=== PATIENT | male | born 1950 | race Caucasian/White ===

== ENCOUNTER 2016-11-27 11:47 | Day surgery (SDC) | payer MEDICARE ==
[~2016-11-27] VITALS: Ht 177.8 cm; Wt 104.3 kg
[~2016-11-27 11:47] MED LIST: FENO160T14 PO; FUR20 PO; LISI-571 PO; METF500T4 PO; METO25TA6 PO; NAPR550T44 PO; POTA10CA42 PO; SIMV20TA4 PO; Sodium Chloride LOK Flush 10 mL Syringe IV PRN; TRAZ-118 PO; fentaNYL-PF 50 mCg/mL 2 mL Inj IVPUSH PRN
[2016-11-27 12:32] VITALS: BP 136/78; PULSE 84; RESP 16; O2SAT 96
[2016-11-27] MEDS ORDERED: INSLIS SUBQ (12:35)
[2016-11-27] MEDS ORDERED: INSU100V7 SUBQ (12:35)
[2016-11-27] MEDS: 0.9% Sodium Chloride 1,000 ML IV PRN ×2 (12:41→14:38)
--- NOTE | 2016-11-27 14:58 | PCM.ENDCOL ---
Colonoscopy Date of Service: Nov 27, 2016 Physician Jarad Marquez MD Pre Procedure Diagnosis: Screening Post Procedure Dx & Findings: Polyp sigmoid diverticuli Procedure Colonoscopy Prep adequate Withdrawal time 17 minutes After unremarkable rectal examination the Olympus video colonoscope was inserted patient's anal canal and was advanced to cecum. Landmarks were identified including the ileocecal valve and appendiceal orifice. Scope was withdrawn systematically. Visualized colonic mucosa showed healthy shiny mucosa with normal healthy-appearing vasculature. In the cecum, there were total of 3 polyps. Sizes varied from 3 mm to 5 mm. These were removed completely using cold snare. In the transverse colon, there was a 1 mm polyp which was removed completely using cold snare. In the descending colon there was another 1 mm polyp which was removed completely using cold snare. In the sigmoid colon there are several small diverticuli. In the rectum retroflexion was done which showed hemorrhoids. Anal canal was inspected carefully on the way out and hemorrhoids noted. Impression Polyp 5 status post complete removal Diverticuli Hemorrhoids Recommendation Repeat colonoscopy 3 years Diverticular diet Presedation Assessment Risks and Benefits Informed consent was obtained from the patient after all risks and benefits including but not limited to drug reaction, infection, pain, bleeding, perforation, as well as alternatives were discussed. Patient monitoring Continuous pulse oximetry, cardiac monitoring, blood pressure monitoring, IV access, and oxygen at 2L per nasal cannula. Periprocedural Fentanyl: Fentanyl 75mcg Incrementally Midazolam: Midazolam 4mg Incrementally Complications There were no periprocedural complications identified. Post Procedure Plan Post Procedure Recommendations 1. Restrict activities today. 2. Resume normal activities in the morning. 3. Resume medications. 4. Patient informed of normal post procedure side effects as bloating, drowsiness, blood streaking in the stool. 5. average risk CRCS. If colon polyps come back as: -Hyperplastic- can repeat colonoscopy in 10 years -Tubular adenoma- repeat colonoscopy in 5 years -Tubulovillous/villous adenoma- repeat colonoscopy in 3 years -If any dysplasia- return to clinic as soon as possible 6. Please don't hesitate to call me with any questions. Jarad Marquez MD Nov 27, 2016 14:58
[2016-11-27 15:02] VITALS: BP 127/73; PULSE 69; RESP 14; O2SAT 96
[2016-11-27 15:14] VITALS: BP 128/79; PULSE 74; RESP 14; O2SAT 97
--- NOTE | 2016-11-30 15:01 | PATH ---
SURGICAL PATHOLOGY Attending Physician:Jarad Marquez M.D. CASE STATUS: Signed Out PATIENT NAME: JAMES BERTRAND PID: [id number] : 1950 DATE COLLECTED:11/27/2016 00:00 SPECIMEN: 1: Colon, Biopsy 2: Colon, Biopsy 3: Colon, Biopsy CLINICAL HISTORY: SCREENING,COLON POLYPS 1). CECAL POLYPS X3 2). TRANSVERSE COLON POLYP 3). DESCENDING COLON POLYP FINAL DIAGNOSIS: 1.CECAL POLYPS: TUBULAR ADENOMA INVOLVING MULTIPLE BIOPSY FRAGMENTS. SESSILE SERRATED ADENOMA INVOLVING SINGLE BIOPSY FRAGMENT. 2.TRANSVERSE COLON POLYP: FRAGMENT OF NORMAL-APPEARING COLON MUCOSA CONSISTENT WITH MUCOSAL POLYPOID REDUNDANCY. Negative for dysplasia and malignancy. 3.DESCENDING COLON POLYP: TUBULAR ADENOMA. ICD10 CODE D12.0 GROSS DESCRIPTION: The specimen is received in three formalin filled containers labeled with the patient's name. 1). The specimen is sublabeled "cecal polyps" and consists of multiple portions of tissue which aggregate to 0.7 x 0.7 x 0.4 CM. The specimen is entirely submitted in cassette 1A. 2). The specimen is sublabeled "transverse colon polyp" and consists of a 0.2 x 0.1 x 0.1 CM portion of tissue which is entirely submitted in cassette 2A. 3). The specimen is sublabeled "descending colon polyp" and consists of a 0.62 x 0.2 x 0.2 CM portion of tissue which is entirely submitted in cassette 3A. 11/28/2016 DAC MICRO DESCRIPTION: See diagnosis. ICD-9 CODES: CPT CODES: 1: 67934 2: 06451 3: 72174 Electronically Signed Out Christian Valentino MD [facility] [address], [place] [address] Technical component performed at [facility], [facility] [address], [place], [address]
== END 2016-11-27 23:59 | disposition home or self-care (01) ==
LOC: END 11:47
PROVIDERS: ATTEND Internal Medicine
DX: D12.0 Benign neoplasm of cecum (principal); D12.3 Benign neoplasm of transverse colon; D12.4 Benign neoplasm of descending colon; K57.30 Diverticulosis of large intestine without perforation or abscess without bleeding; K64.8 Other hemorrhoids; D69.6 Thrombocytopenia, unspecified; E11.9 Type 2 diabetes mellitus without complications; Z79.4 Long term (current) use of insulin; Z79.899 Other long term (current) drug therapy